=== PATIENT | female | born 1990 | race Caucasian/White ===

== ENCOUNTER 2022-02-26 19:20 | Outpatient (CLI) | payer OTHER | END 2022-02-26 19:21 | disposition EMS.NT | LOC: EMS 19:20 | DX: R45.851 Suicidal ideations (principal); F41.9 Anxiety disorder, unspecified ==

== ENCOUNTER 2022-02-26 20:10 | Emergency (ER) | payer OTHER ==
[2022-02-26 20:36] LABS: MUDS CUTOFF CONCENTRATIONS CUTOFF CONC BELOW:
[2022-02-26 20:38] LABS: BILIRUBIN,URINE NEGATIVE (NEGATIVE); GLUCOSE, URINE (UA) NEGATIVE (NEGATIVE); KETONES,URINE (UA) 40 mg/dL (NEGATIVE); LEUKOCYTE ESTERASE, URINE NEGATIVE (NEGATIVE); NITRITE,URINE NEGATIVE (NEGATIVE); OCCULT BLOOD,URINE TRACE-INTA (NEGATIVE); PROTEIN,URINE NEGATIVE (NEGATIVE); UROBILINOGEN,URINE 0.2 (NORMAL) E.U./dL (NORMAL)
[2022-02-26 20:41] LABS: CLARITY,URINE CLEAR (CLEAR); HCG UR QUAL NEGATIVE
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
[2022-02-26 20:49] LABS: AMPHETAMINE SCREEN,URINE NEGATIVE (NEGATIVE); BARBITURATE SCREEN,UR NEGATIVE (NEGATIVE); BENZODIAZEPINES SCREEN, URINE NEGATIVE (NEGATIVE); COCAINE SCREEN URINE NEGATIVE (NEGATIVE); METHADONE SCREEN, URINE NEGATIVE (NEGATIVE); METHAMPHETAMINES SCREEN, URINE NEGATIVE (NEGATIVE); OPIATE SCREEN, URINE NEGATIVE (NEGATIVE); OXYCODONE SCREEN, URINE NEGATIVE (NEGATIVE); PROPOXYPHENE SCREEN, URINE NEGATIVE (NEGATIVE); THC CANNABINOID SCREEN, URINE NEGATIVE (NEGATIVE); TRICYCLIC ANTIDEPRESSANT,URINE NEGATIVE (NEGATIVE)
[2022-02-26 20:53] LABS: BASOPHILS % (AUTO) 0.4 %; EOSINOPHILS # (AUTO) 0.1 10^3/uL (0.0-0.7); EOSINOPHILS % (AUTO) 0.6 %; HCT - HEMATOCRIT 36.3 % (37.0-47.0); HGB - HEMOGLOBIN 11.7 g/dL (12.0-16.0); LYMPHOCYTES # (AUTO) 2.9 10^3/uL (1.5-3.5); LYMPHOCYTES % (AUTO) 28.4 %; MEAN CORPUSCULAR HEMOGLOBIN 28.3 pg (27.0-31.0); MEAN CORPUSCULAR HGB CONC 32.2 g/dL (32.0-36.0); MEAN CORPUSCULAR VOLUME 87.9 fL (81.0-99.0); MEAN PLATELET VOLUME 10.1 fL (7.9-10.8); MONOCYTES # (AUTO) 0.5 10^3/uL (0.0-1.0); MONOCYTES % (AUTO) 4.8 %; NEUTROPHILS # (AUTO) 6.6 10^3/uL (1.5-6.6); NEUTROPHILS % (AUTO) 65.6 %; PLT - PLATELET COUNT 266 10^3/uL (130-450); RED BLOOD COUNT 4.13 10^6/uL (4.20-5.40); RED CELL DISTRIBUTION WIDTH 15.1 % (12.0-15.0)
[2022-02-26 21:05] LABS: ACETAMINOPHEN < 10 ug/mL (10-30); ALBUMIN 4.7 g/dL (3.2-5.5); ALBUMIN/GLOBULIN RATIO 1.4 (1.0-2.2); ALKALINE PHOSPHATASE 76 IU/L (42-121); ALT ALANINE AMINOTRANSFERASE 42 IU/L (10-60); AST ASPARTATE AMINOTRANSFERASE 54 IU/L (10-42); BILIRUBIN,TOTAL 0.4 mg/dL (0.2-1.0); BUN - BLOOD UREA NITROGEN 6 mg/dL (6-20); CALCIUM 8.9 mg/dL (8.5-10.3); CARBON DIOXIDE - CO2 24 mmol/L (21-32); CHLORIDE 102 mmol/L (101-111); CREATININE 0.6 mg/dL (0.4-1.0); ETOH - ETHANOL < 5.0 mg/dL; GFR - MDRD 115 (>89); GLUCOSE 98 mg/dL (70-100); LIPASE 29 U/L (22-51); POTASSIUM 3.4 mmol/L (3.5-5.0); SALICYLATE < 6.0 mg/dL; SODIUM 139 mmol/L (135-145); TOTAL PROTEIN 8.1 g/dL (6.7-8.2)
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
[2022-02-27] MEDS ORDERED: SERTRALINE 25 MG TABLET PO SCH (09:00)
--- NOTE | 2022-02-27 12:01 | ED Physician Documentation ---
ED Addendum - Addendum Addendum: 02/27/22 12:00 Seen by social work who arranged for a voluntary bed at [facility] under the care of Geraldo Molina. She is stable for transport and cobras are completed. Disposition: Transferred to [facility] Condition: Stable Diagnosis 1. Depression
--- NOTE | 2022-02-27 13:18 | ED Physician Documentation ---
ED Addendum - Addendum Addendum: 02/27/22 13:15Update from the [place], social work, the patient's spouse is here and they seem to be interacting appropriately. The patient is now at this point preferring not to be hospitalized and instead go home with her and see her counselor and primary care in the next few days. She is not feeling suicidal at this time. Our social work feels that there is good elements of a safety plan with the patient not feeling suicidal at this time, her feeling comfortable with her coming home and will monitor her medications. The patient had had ideation of overdosing on her medications when upset last evening but called for help instead of acting on that. She did not have a specific plan per se for her ideation this morning when social work talked with her. At this point the patient seems to have a reasonable safety plan and I do not feel compelled to change from a voluntary to involuntary. As such the patient is now wishing to be discharged and that seems reasonable. We will cancel the transfer/admission to psychiatric facility. She will be discharged home in stable condition. Disposition: The patient is discharged home in stable condition Diagnoses: 1. Affective disorder with suicidal ideation 2. stress reaction 02/27/22 13:18
[2022-02-27 13:28] VITALS: BP 107/64
== END 2022-02-27 13:45 | disposition home or self-care (01) ==
LOC: ED 20:10
DX: F33.1 Major depressive disorder, recurrent, moderate (principal); F43.9 Reaction to severe stress, unspecified; F39 Unspecified mood [affective] disorder; R45.851 Suicidal ideations; Z20.822 Contact with and (suspected) exposure to COVID-19
CPT/HCPCS: 36415; 80053; 80306; 80307; 80320; 80329; 81003; 81025; 83690; 84443; 85025; 87635; 90836; 99283; A9270; 81001; 87086; 90834

== ENCOUNTER 2022-10-12 20:19 | Emergency (ER) | payer OTHER ==
--- NOTE | 2022-10-12 21:02 | ED Physician Documentation ---
History of Present Illness - Stated complaint Stated Complaint: C+, MIGRAINE,FEVER,DIZZY - Chief complaint Chief Complaint: General - History obtained from History obtained from: Patient - History of Present Illness Timing: How many days ago (5) Improved by: rest Worsened by: dizziness is exacerbated when she stands up or when she blows her nose. not exacerbated with turning head to either side - Additonal information Additional information: patient has been having five days of fever Tmax 101.2, myalgias , headache, cough, sore throat. These symptoms have been improving past 1-2 days, and since yesterday, she has developed diarrhea, rhinorrhea, and dizziness/lightheadedness whenever she stands (or blows her nose). The dizziness/lightheadedness is her chief concern tonight. She says she is tolerating PO , but between diarrhea and decreased appetite, she is concerned she could be dehydrated. She also has had chest pain today, started 4:30 PM while at rest, described as a pressure and midline chest, lasted approximately 1 hour. Denies nausea, vomiting. Patient took a home COVID test today and was positive for COVID. 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 No known CAD Review of Systems Constitutional: reports: Fever, Myalgias Throat: reports: Sore throat Cardiac: reports: Chest pain / pressure. denies: Palpitations, Pedal edema Respiratory: reports: Dyspnea, Cough. denies: Hemoptysis, Wheezing GI: denies: Nausea, Vomiting : denies: Now EGA Musculoskeletal: denies: Extremity swelling Neurologic: reports: Headache (resolved yesterday) PD PAST MEDICAL HISTORY - Past Medical History Past Medical History: Yes Cardiovascular: Congestive heart failure, Other Respiratory: None Neuro: None Endocrine/Autoimmune: None GI: None [employer] SALT: None : None HEENT: None Psych: Other Musculoskeletal: None Derm: None Other Past Medical History: CARDIOMYOPATHY.. - Past Surgical History Past Surgical History: No - Present Medications Home Medications: Ambulatory Orders Medication Instructions Recorded Confirmed No Known Home Medications 10/12/22 10/12/22 - Allergies Allergies/Adverse Reactions: Allergies Allergy/AdvReac Type Severity Reaction Status Date / Time chocolate flavor Allergy Hives Verified 10/12/22 20:42 kiwi Allergy Edema Verified 10/12/22 20:42 - Social History Does the pt smoke?: No Smoking Status: Never smoker Does the pt drink ETOH?: No Does the pt have substance abuse?: No - Immunizations Immunizations are current?: Yes - POLST Patient has POLST: No PD ED PE NORMAL - Vitals Vital signs reviewed: Yes - General General: Alert and oriented X 3, No acute distress, Well developed/nourished - HEENT HEENT: Other (pasty mucous membranes) - Neck Neck: Supple, no meningeal sign - Cardiac Cardiac: No murmur, No gallop, No rub - Respiratory Respiratory: No respiratory distress, Clear bilaterally - Derm Derm: Normal color, Warm and dry PD ED PE EXPANDED - Cardiac Cardiac: Tachy, Regular Rhythm Results - Vitals Vitals: Oxygen O2 Source Room air - EKG (time done) No standard instances Rate: Rate (enter#) (87) Rhythm: NSR [place]: Normal Intervals: Normal PA QRS: Normal Ischemia: Normal ST segments - Labs Labs: Laboratory Tests 10/12/22 10/12/22 10/12/22 21:36 21:36 21:36 WBC 8.7 RBC 3.96 L Hgb 11.0 L Hct 35.2 L MCV 88.9 MCH 27.8 MCHC 31.3 L RDW 14.7 Plt Count 283 MPV 10.1 Neut # (Auto) 4.5 Lymph # (Auto) 3.1 [place] # (Auto) 0.8 Eos # (Auto) 0.2 Baso # (Auto) 0.0 Absolute Nucleated RBC 0.00 Nucleated RBC % 0.0 Sodium 140 Potassium 3.9 Chloride 103 Carbon Dioxide 27 Anion Gap 10.0 BUN 8 Creatinine 0.6 Estimated GFR (MDRD) 114 Glucose 96 Calcium 9.1 Troponin I High Sens 4.6 B-Natriuretic Peptide 10/12/22 21:36 WBC RBC Hgb Hct MCV MCH MCHC RDW Plt Count MPV Neut # (Auto) Lymph # (Auto) [place] # (Auto) Eos # (Auto) Baso # (Auto) Absolute Nucleated RBC Nucleated RBC % Sodium Potassium Chloride Carbon Dioxide Anion Gap BUN Creatinine Estimated GFR (MDRD) Glucose Calcium Troponin I High Sens B-Natriuretic Peptide 13 PD MEDICAL DECISION MAKING - ED course Complexity details: reviewed results, re-evaluated patient, considered differential, d/w patient ED course: presents with chief concern of lightheaded/dizzy whenever she stands, since yesterday. Dehydration is suspected: even though she says she is tolerating PO well, she has diarrhea since yesterday and would likely have had insensible loses with the febrile illness (COVID) that she is just starting to get over (symptoms just started to improve yesterday). She has clear lungs, no peripheral edema, does not take diuretics; given 500cc NS bolus. Basic blood tests as well as hs-cTn and BNP performed. CXR not undertaken given clear lungs on auscultation and 100% pulse ox room air with no respiratory distress. Results d/w patient, return precautions reviewed. She reports feeling much improved with the IV fluids. Departure - Departure Disposition: 01 Home, Self Care Clinical Impression: Viral syndrome, Dehydration Condition: Good Instructions: ED Dehydration, ED Viral Syndrome Comments: The results of the tests tonight are without concerning findings. Your red blood cell level was a little below the normal range, but not nearly enough to cause symptoms; it is an incidental finding. I note that a previous result (February 2022) also showed a similar result. Your cardiac enzyme test and the BNP (blood test that correlates with fluid overload such as can happen with congestive heart failure) are both normal. Discharge Date/Time: 10/12/22 23:12
[2022-10-12] MEDS ORDERED: SODIUM CHLORIDE 0.9% 500 ML IV STA (21:27)
[2022-10-12 21:42] LABS: BASOPHILS % (AUTO) 0.5 %; EOSINOPHILS # (AUTO) 0.2 10^3/uL (0.0-0.7); EOSINOPHILS % (AUTO) 2.2 %; HCT - HEMATOCRIT 35.2 % (37.0-47.0); LYMPHOCYTES # (AUTO) 3.1 10^3/uL (1.5-3.5); LYMPHOCYTES % (AUTO) 35.8 %; MEAN CORPUSCULAR HEMOGLOBIN 27.8 pg (27.0-31.0); MEAN CORPUSCULAR HGB CONC 31.3 g/dL (32.0-36.0); MEAN CORPUSCULAR VOLUME 88.9 fL (81.0-99.0); MEAN PLATELET VOLUME 10.1 fL (7.9-10.8); MONOCYTES # (AUTO) 0.8 10^3/uL (0.0-1.0); MONOCYTES % (AUTO) 9.1 %; NEUTROPHILS # (AUTO) 4.5 10^3/uL (1.5-6.6); NEUTROPHILS % (AUTO) 52.2 %; PLT - PLATELET COUNT 283 10^3/uL (130-450); RED BLOOD COUNT 3.96 10^6/uL (4.20-5.40); RED CELL DISTRIBUTION WIDTH 14.7 % (12.0-15.0); WHITE BLOOD COUNT 8.7 x10^3/uL (4.8-10.8)
[2022-10-12 21:54] LABS: CALCIUM 9.1 mg/dL (8.5-10.3); CREATININE 0.6 mg/dL (0.4-1.0); POTASSIUM 3.9 mmol/L (3.5-5.0)
[2022-10-12 23:13] VITALS: BP 116/62
== END 2022-10-12 23:12 | disposition home or self-care (01) ==
LOC: ED 20:19
DX: E86.0 Dehydration (principal); B34.9 Viral infection, unspecified
CPT/HCPCS: 36415; 80048; 83880; 84484; 85025; 93005; 96360; 99282